=== PATIENT | female | born 1935 | race Caucasian/White ===

== ENCOUNTER 2017-04-24 13:29 | Inpatient (IN) ==
[2017-04-24] MEDS ORDERED: MAGNESIUM HYDROXIDE SUSP 30 ML UDCUP PO PRN (15:29)
[2017-04-24] MEDS ORDERED: ONDANSETRON 4 MG/2 ML VIAL IV PRN (15:29)
[2017-04-24] MEDS ORDERED: ACETAMINOPHEN 325 MG TABLET PO PRN (15:29)
[2017-04-24 17:16] LABS: Basophils # 0.1 10*3/uL (0.0-0.2); Basophils % 0.4 % (0.0-0.8); Eosinophils % 0.1 % (0.00-10.9); Hematocrit 38.9 VOL% (35.7-47.0); Hemoglobin 13.1 GM/DL (12.0-16.0); Immature Granulocytes % 0.5 %; Immature Granulocytes Absolute 0.08 #; Lymphocytes # 1.5 10*3/uL (1.4-4.0); Lymphocytes % 10.1 % (21.3-54.2); Mean Corpuscular HGB Conc 33.7 GM/DL (32-36); Mean Corpuscular Hemoglobin 31 PG (27-34); Mean Corpuscular Volume 90.5 FL (87-102); Mean Platelet Volume 9.9 FL (9.6-12.0); Monocytes # 1.1 10*3/uL (0.11-0.8); Monocytes % 7.4 % (1.7-12.7); Neutrophils # 12.1 10*3/uL (1.4-7.4); Neutrophils % 81.5 % (38.7-73.9); Platelet Count 145 T/CUMM (130-400); Red Cell Distribution Width 13.5 % (9.3-17.3); White Blood Count 14.9 T/CUMM (4-12)
[2017-04-24] MEDS: AMPICILLIN/SULBACTAM 1,500 MG in SODIUM CHLORIDE 0.9% 100 ML IV SCH (17:20)
[2017-04-24] MEDS: SODIUM CHLORIDE 0.45% 1,000 ML IV SCH (17:21)
[2017-04-24] MEDS: methylPREDNISolone SOD SUC 40 MG/1 ML VIAL IV SCH (17:21)
[2017-04-24 17:36] LABS: INR 1.9; PT Patient Result 19.4 SECS
[2017-04-24 18:02] LABS: Albumin 3.7 G/DL (3.4-5.0); Bilirubin,Total 1.1 MG/DL (0.2-1.0); Calcium 9.1 MG/DL (8.5-10.1); Osmolality,Calculated 270.2 MOS/KG (273-304); Total Protein 7.2 G/DL (6.4-8.3)
[2017-04-24] MEDS: GABAPENTIN 600 MG TABLET PO SCH (21:11)
[2017-04-24] MEDS: DILTIAZEM CD 120 MG CAPSULE PO SCH (21:11)
[2017-04-24] MEDS: WARFARIN 5 MG TABLET PO SCH (21:11)
[2017-04-24] MEDS: CARVEDILOL 12.5 MG TABLET PO SCH (21:12)
[2017-04-24] MEDS: DOCUSATE SODIUM 100 MG CAPSULE PO SCH (21:12)
[2017-04-24] MEDS ORDERED: FUROSEMIDE 40 MG/4 ML VIAL IV ONE (22:46)
[2017-04-25] MEDS: cloNIDine 0.1 MG TABLET PO SCH ×2 (00:10→20:30)
[2017-04-25] MEDS: AMPICILLIN/SULBACTAM 1,500 MG in SODIUM CHLORIDE 0.9% 100 ML IV SCH ×3 (00:10→16:05)
[2017-04-25] MEDS: ALBUTEROL/IPRATROPIUM 3 ML NEB RESP TX SCH ×4 (01:31→19:35)
[2017-04-25] MEDS: methylPREDNISolone SOD SUC 40 MG/1 ML VIAL IV SCH ×2 (04:15→15:54)
[2017-04-25 05:15] LABS: Basophils # 0.1 10*3/uL (0.0-0.2); Basophils % 0.4 % (0.0-0.8); Eosinophils % 0.2 % (0.00-10.9); Hematocrit 32.9 VOL% (35.7-47.0); Hemoglobin 11.4 GM/DL (12.0-16.0); Immature Granulocytes % 0.8 %; Lymphocytes # 1.3 10*3/uL (1.4-4.0); Mean Corpuscular HGB Conc 34.7 GM/DL (32-36); Mean Corpuscular Hemoglobin 31 PG (27-34); Mean Corpuscular Volume 89.9 FL (87-102); Mean Platelet Volume 9.9 FL (9.6-12.0); Monocytes % 7.3 % (1.7-12.7); Neutrophils # 10.8 10*3/uL (1.4-7.4); Neutrophils % 81.3 % (38.7-73.9); Platelet Count 132 T/CUMM (130-400); Red Blood Count 3.66 MC/CUMM (3.8-5.5); Red Cell Distribution Width 13.6 % (9.3-17.3); White Blood Count 13.3 T/CUMM (4-12)
[2017-04-25 05:43] LABS: Calcium 8.3 MG/DL (8.5-10.1)
[2017-04-25 06:27] LABS: Apearance,Urine CLEAR (Clear); Bacteria,Urine Occasional /HPF (Few); Bilirubin,Urine Negative (Negative); Blood, Urine Small mg/dL (Negative); Glucose,Urine (UA) Negative (Negative); Ketones,Urine Negative (Negative); Nitrite,Urine Negative (Negative); Protein,Urine Negative; RBC,Urine <1 /HPF (0-4); Squamous Epithelial Cell,Urine Occasional /HPF (0-10); Urine Color Yellow (Yellow); Urine Specific Gravity 1.009 (1.001-1.035); Urine Urobilinogen < 2.0 EU/DL (0.2-1.0); WBC,Urine 3 /HPF (0-6)
[2017-04-25] MEDS ORDERED: SKIN HEALING OINT (AQUAPHOR) 50 GM TUBE TOP PRN (08:04)
[2017-04-25] MEDS ORDERED: CHLORHEXIDINE 4% SOLN 118 ML BOTTLE TOP ONE (08:04)
[2017-04-25] MEDS: FUROSEMIDE 20 MG/2 ML VIAL IV SCH (08:30)
[2017-04-25] MEDS: DOCUSATE SODIUM 100 MG CAPSULE PO SCH ×2 (08:30→20:30)
[2017-04-25] MEDS: SERTRALINE 50 MG TABLET PO SCH (08:30)
[2017-04-25] MEDS: PANTOPRAZOLE 40 MG TABLET PO SCH (08:30)
[2017-04-25] MEDS: CARVEDILOL 12.5 MG TABLET PO SCH ×2 (08:30→20:30)
[2017-04-25] MEDS: SODIUM CHLORIDE 0.45% 1,000 ML IV SCH (08:33)
[2017-04-25] MEDS: WARFARIN 5 MG TABLET PO SCH (17:25)
[2017-04-25] MEDS: DILTIAZEM CD 120 MG CAPSULE PO SCH (20:30)
[2017-04-25] MEDS: GABAPENTIN 600 MG TABLET PO SCH (20:30)
[2017-04-26] MEDS: ALBUTEROL/IPRATROPIUM 3 ML NEB RESP TX SCH ×4 (00:13→21:02)
[2017-04-26] MEDS: SODIUM CHLORIDE 0.45% 1,000 ML IV SCH ×2 (00:58→08:49)
[2017-04-26] MEDS: AMPICILLIN/SULBACTAM 1,500 MG in SODIUM CHLORIDE 0.9% 100 ML IV SCH ×3 (00:59→15:59)
[2017-04-26] MEDS: methylPREDNISolone SOD SUC 40 MG/1 ML VIAL IV SCH ×2 (04:21→15:54)
[2017-04-26 06:59] LABS: Osmolality,Calculated 271.8 MOS/KG (273-304); Potassium 3.5 MMOL/L (3.5-5.1)
[2017-04-26] MEDS: DOCUSATE SODIUM 100 MG CAPSULE PO SCH ×3 (09:51→21:41)
[2017-04-26] MEDS: SERTRALINE 50 MG TABLET PO SCH (10:01)
[2017-04-26] MEDS: PANTOPRAZOLE 40 MG TABLET PO SCH (10:02)
[2017-04-26] MEDS: FUROSEMIDE 20 MG/2 ML VIAL IV SCH (10:02)
[2017-04-26] MEDS: CARVEDILOL 12.5 MG TABLET PO SCH ×2 (10:02→21:39)
[2017-04-26 17:13] LABS: INR 2.3
[2017-04-26 17:15] LABS: PT Patient Result 23.6 SECS
[2017-04-26] MEDS: WARFARIN 5 MG TABLET PO SCH (17:32)
[2017-04-26] MEDS ORDERED: POTASSIUM CHLORIDE 20 MEQ TABLET PO ONE (17:44)
[2017-04-26] MEDS: GABAPENTIN 600 MG TABLET PO SCH (21:38)
[2017-04-26] MEDS: cloNIDine 0.1 MG TABLET PO SCH (21:38)
[2017-04-26] MEDS: DILTIAZEM CD 120 MG CAPSULE PO SCH (21:38)
[2017-04-27] MEDS: ALBUTEROL/IPRATROPIUM 3 ML NEB RESP TX SCH ×4 (00:50→19:31)
[2017-04-27] MEDS: AMPICILLIN/SULBACTAM 1,500 MG in SODIUM CHLORIDE 0.9% 100 ML IV SCH ×4 (01:14→17:07)
[2017-04-27] MEDS: methylPREDNISolone SOD SUC 40 MG/1 ML VIAL IV SCH ×2 (03:44→15:16)
[2017-04-27 07:07] LABS: Basophils % 0.2 % (0.0-0.8); Eosinophils % 0.1 % (0.00-10.9); Hematocrit 33.6 VOL% (35.7-47.0); Hemoglobin 11.1 GM/DL (12.0-16.0); Immature Granulocytes % 1.3 %; Immature Granulocytes Absolute 0.13 #; Mean Corpuscular Hemoglobin 30 PG (27-34); Mean Corpuscular Volume 92.1 FL (87-102); Mean Platelet Volume 10.6 FL (9.6-12.0); Monocytes # 0.7 10*3/uL (0.11-0.8); Neutrophils # 8.2 10*3/uL (1.4-7.4); Neutrophils % 81.4 % (38.7-73.9); Platelet Count 172 T/CUMM (130-400); Red Blood Count 3.65 MC/CUMM (3.8-5.5); Red Cell Distribution Width 13.2 % (9.3-17.3); White Blood Count 10.1 T/CUMM (4-12)
[2017-04-27 07:38] LABS: Calcium 8.4 MG/DL (8.5-10.1); Osmolality,Calculated 281.5 MOS/KG (273-304); Potassium 4.5 MMOL/L (3.5-5.1)
[2017-04-27] MEDS: FUROSEMIDE 20 MG/2 ML VIAL IV SCH (08:38)
[2017-04-27] MEDS: CARVEDILOL 12.5 MG TABLET PO SCH ×2 (08:39→21:26)
[2017-04-27] MEDS: PANTOPRAZOLE 40 MG TABLET PO SCH (08:40)
[2017-04-27] MEDS: SERTRALINE 50 MG TABLET PO SCH (08:40)
[2017-04-27] MEDS: POTASSIUM CHLORIDE 20 MEQ TABLET PO SCH (09:35)
[2017-04-27] MEDS: DOCUSATE SODIUM 100 MG CAPSULE PO SCH ×2 (11:21→21:29)
[2017-04-27] MEDS: WARFARIN 5 MG TABLET PO SCH (17:02)
[2017-04-27] MEDS: GABAPENTIN 600 MG TABLET PO SCH (21:26)
[2017-04-27] MEDS: DILTIAZEM CD 120 MG CAPSULE PO SCH (21:26)
[2017-04-27] MEDS: cloNIDine 0.1 MG TABLET PO SCH (21:26)
[2017-04-27] MEDS: AMOXICILLIN/CLAV 500 MG TABLET PO SCH (21:26)
[2017-04-28] MEDS: ALBUTEROL/IPRATROPIUM 3 ML NEB RESP TX SCH ×2 (00:18→08:00)
[2017-04-28 06:55] LABS: Calcium 8.6 MG/DL (8.5-10.1); Osmolality,Calculated 279.5 MOS/KG (273-304); Potassium 4.4 MMOL/L (3.5-5.1)
[2017-04-28] MEDS ORDERED: FUROSEMIDE 40 MG TABLET PO SCH (09:00)
[2017-04-28] MEDS: CARVEDILOL 12.5 MG TABLET PO SCH (09:19)
[2017-04-28] MEDS: SERTRALINE 50 MG TABLET PO SCH (09:19)
[2017-04-28] MEDS: POTASSIUM CHLORIDE 20 MEQ TABLET PO SCH (09:19)
[2017-04-28] MEDS: DOCUSATE SODIUM 100 MG CAPSULE PO SCH (09:19)
[2017-04-28] MEDS: AMOXICILLIN/CLAV 500 MG TABLET PO SCH (09:19)
[2017-04-28] MEDS: PANTOPRAZOLE 40 MG TABLET PO SCH (09:19)
[2017-04-28 11:34] VITALS: BP 151/84
== END 2017-04-28 12:15 | disposition home health service (06) | DRG 603 ==
LOC: N.5E 16:27
PROVIDERS: ADMIT Internal Medicine; ATTEND Internal Medicine

== ENCOUNTER 2018-12-18 14:11 | Inpatient (IN) ==
[2018-12-18] MEDS ORDERED: ONDANSETRON 4 MG/2 ML VIAL IV PRN (14:16)
[2018-12-18] MEDS ORDERED: ACETAMINOPHEN 325 MG TABLET PO PRN (14:16)
[2018-12-18 16:09] LABS: Basophils # 0.1 10*3/uL (0.0-0.2); Basophils % 0.9 % (0.0-0.8); Eosinophils # 0.1 10*3/uL (0.0-0.87); Eosinophils % 1.5 % (0.00-10.9); Hematocrit 40.2 VOL% (35.7-47.0); Hemoglobin 13.1 GM/DL (12.0-16.0); Immature Granulocytes % 0.5 %; Immature Granulocytes Absolute 0.03 #; Lymphocytes # 1.4 10*3/uL (1.4-4.0); Lymphocytes % 20.5 % (21.3-54.2); Mean Corpuscular HGB Conc 32.6 GM/DL (32-36); Mean Corpuscular Volume 92.2 FL (87-102); Mean Platelet Volume 10.4 FL (9.6-12.0); Monocytes % 8.8 % (1.7-12.7); Neutrophils % 67.8 % (38.7-73.9); Platelet Count 179 T/CUMM (130-400); Red Blood Count 4.36 MC/CUMM (3.8-5.5); Red Cell Distribution Width 13.4 % (9.3-17.3); White Blood Count 6.6 T/CUMM (4-12)
[2018-12-18 16:25] LABS: INR 1.7; PT Patient Result 18.7 SECS (9.6-12.2)
[2018-12-18 16:28] LABS: Albumin 3.5 G/DL (3.4-5.0); Bilirubin,Total 0.8 MG/DL (0.2-1.0); Calcium 9.8 MG/DL (8.5-10.1); Osmolality,Calculated 273.8 MOS/KG (273-304); Total Protein 7.4 G/DL (6.4-8.3)
[2018-12-18] MEDS: TERBINAFINE 1% CREAM 12 GM TUBE TOP SCH ×2 (16:52→21:39)
[2018-12-18] MEDS: PIPERACILLIN/TAZOBACTAM 3,375 MG in SODIUM CHLORIDE 0.9% 100 ML IV SCH ×2 (16:52→23:39)
[2018-12-18] MEDS: SKIN HEALING OINT (AQUAPHOR) 50 GM TUBE TOP PRN (16:52)
[2018-12-18] MEDS ORDERED: SKIN HEALING OINT (AQUAPHOR) 50 GM TUBE TOP PRN (20:43)
[2018-12-18] MEDS ORDERED: FUROSEMIDE 40 MG/4 ML VIAL IV ONE (20:48)
[2018-12-18] MEDS: carvediloL 12.5 MG TABLET PO SCH (22:23)
[2018-12-18] MEDS: DILTIAZEM CD 120 MG CAPSULE PO SCH (22:24)
[2018-12-18] MEDS: WARFARIN 5 MG TABLET PO SCH (22:24)
[2018-12-18] MEDS: DOCUSATE SODIUM 100 MG CAPSULE PO SCH (22:24)
[2018-12-19] MEDS: ALBUTEROL/IPRATROPIUM 3 ML NEB RESP TX SCH ×4 (00:10→19:07)
[2018-12-19 06:08] LABS: INR 1.9
[2018-12-19 06:26] LABS: Calcium 9.1 MG/DL (8.5-10.1)
[2018-12-19] MEDS: PIPERACILLIN/TAZOBACTAM 3,375 MG in SODIUM CHLORIDE 0.9% 100 ML IV SCH ×2 (06:29→15:34)
[2018-12-19] MEDS: PANTOPRAZOLE 40 MG TABLET PO SCH (09:50)
[2018-12-19] MEDS: SERTRALINE 50 MG TABLET PO SCH (09:50)
[2018-12-19] MEDS: DOCUSATE SODIUM 100 MG CAPSULE PO SCH ×2 (09:50→21:40)
[2018-12-19] MEDS: FUROSEMIDE 40 MG/4 ML VIAL IV SCH ×2 (09:50→15:34)
[2018-12-19] MEDS: TERBINAFINE 1% CREAM 12 GM TUBE TOP SCH ×2 (09:52→21:41)
[2018-12-19] MEDS: WARFARIN 5 MG TABLET PO SCH (17:21)
[2018-12-19] MEDS: DILTIAZEM CD 120 MG CAPSULE PO SCH (21:40)
[2018-12-19] MEDS: carvediloL 12.5 MG TABLET PO SCH (21:40)
[2018-12-20] MEDS: PIPERACILLIN/TAZOBACTAM 3,375 MG in SODIUM CHLORIDE 0.9% 100 ML IV SCH ×4 (00:11→23:20)
[2018-12-20] MEDS: ALBUTEROL/IPRATROPIUM 3 ML NEB RESP TX SCH ×4 (00:45→19:48)
[2018-12-20 06:42] LABS: INR 1.9; PT Patient Result 20.4 SECS (9.6-12.2)
[2018-12-20] MEDS: FUROSEMIDE 40 MG/4 ML VIAL IV SCH ×2 (09:54→15:18)
[2018-12-20] MEDS: PANTOPRAZOLE 40 MG TABLET PO SCH (09:55)
[2018-12-20] MEDS: TERBINAFINE 1% CREAM 12 GM TUBE TOP SCH ×2 (09:55→21:01)
[2018-12-20] MEDS: DOCUSATE SODIUM 100 MG CAPSULE PO SCH ×2 (09:55→20:59)
[2018-12-20] MEDS: SERTRALINE 50 MG TABLET PO SCH (09:55)
[2018-12-20] MEDS: SKIN HEALING OINT (AQUAPHOR) 50 GM TUBE TOP PRN (09:56)
[2018-12-20] MEDS: WARFARIN 5 MG TABLET PO SCH (17:38)
[2018-12-20] MEDS: DILTIAZEM CD 120 MG CAPSULE PO SCH (20:59)
[2018-12-20] MEDS: carvediloL 12.5 MG TABLET PO SCH (20:59)
[2018-12-20] MEDS: cloNIDine 0.1 MG TABLET PO SCH (20:59)
[2018-12-21] MEDS: ALBUTEROL/IPRATROPIUM 3 ML NEB RESP TX SCH ×4 (01:52→19:13)
[2018-12-21 04:54] LABS: INR 1.6; PT Patient Result 16.9 SECS (9.6-12.2)
[2018-12-21 04:56] LABS: Basophils # 0.1 10*3/uL (0.0-0.2); Basophils % 1.4 % (0.0-0.8); Eosinophils # 0.2 10*3/uL (0.0-0.87); Eosinophils % 2.9 % (0.00-10.9); Hematocrit 36.9 VOL% (35.7-47.0); Immature Granulocytes % 0.8 %; Immature Granulocytes Absolute 0.04 #; Lymphocytes # 1.6 10*3/uL (1.4-4.0); Lymphocytes % 30.7 % (21.3-54.2); Mean Corpuscular HGB Conc 32.5 GM/DL (32-36); Mean Corpuscular Volume 91.1 FL (87-102); Mean Platelet Volume 9.7 FL (9.6-12.0); Monocytes % 8.7 % (1.7-12.7); Neutrophils % 55.5 % (38.7-73.9); Platelet Count 146 T/CUMM (130-400); Red Blood Count 4.05 MC/CUMM (3.8-5.5); Red Cell Distribution Width 13.3 % (9.3-17.3); White Blood Count 5.2 T/CUMM (4-12)
[2018-12-21 05:24] LABS: Albumin 3.2 G/DL (3.4-5.0); Calcium 8.8 MG/DL (8.5-10.1); Osmolality,Calculated 283.4 MOS/KG (273-304); Total Protein 6.3 G/DL (6.4-8.3)
[2018-12-21] MEDS: PIPERACILLIN/TAZOBACTAM 3,375 MG in SODIUM CHLORIDE 0.9% 100 ML IV SCH ×3 (06:17→22:16)
[2018-12-21] MEDS: PANTOPRAZOLE 40 MG TABLET PO SCH (08:55)
[2018-12-21] MEDS: cloNIDine 0.1 MG TABLET PO SCH ×3 (08:55→20:57)
[2018-12-21] MEDS: FUROSEMIDE 40 MG/4 ML VIAL IV SCH ×2 (08:55→15:42)
[2018-12-21] MEDS: DOCUSATE SODIUM 100 MG CAPSULE PO SCH ×2 (08:55→20:57)
[2018-12-21] MEDS: SERTRALINE 50 MG TABLET PO SCH (08:55)
[2018-12-21] MEDS: TERBINAFINE 1% CREAM 12 GM TUBE TOP SCH ×2 (12:30→22:16)
[2018-12-21] MEDS: WARFARIN 5 MG TABLET PO SCH (18:03)
[2018-12-21] MEDS: POTASSIUM CHLORIDE 20 MEQ TABLET PO SCH (18:03)
[2018-12-21] MEDS: DILTIAZEM CD 120 MG CAPSULE PO SCH (20:57)
[2018-12-21] MEDS: carvediloL 12.5 MG TABLET PO SCH (20:57)
[2018-12-22] MEDS: ALBUTEROL/IPRATROPIUM 3 ML NEB RESP TX SCH (00:20)
[2018-12-22] MEDS: PIPERACILLIN/TAZOBACTAM 3,375 MG in SODIUM CHLORIDE 0.9% 100 ML IV SCH (06:04)
[2018-12-22] MEDS: FUROSEMIDE 40 MG/4 ML VIAL IV SCH ×2 (08:34→08:39)
[2018-12-22] MEDS: PANTOPRAZOLE 40 MG TABLET PO SCH (08:35)
[2018-12-22] MEDS: SERTRALINE 50 MG TABLET PO SCH (08:35)
[2018-12-22] MEDS: DOCUSATE SODIUM 100 MG CAPSULE PO SCH (08:35)
[2018-12-22] MEDS: POTASSIUM CHLORIDE 20 MEQ TABLET PO SCH (08:35)
[2018-12-22] MEDS: cloNIDine 0.1 MG TABLET PO SCH (08:35)
[2018-12-22] MEDS: TERBINAFINE 1% CREAM 12 GM TUBE TOP SCH (08:36)
[2018-12-22 09:08] VITALS: BP 150/79
[2018-12-22] MEDS ORDERED: WARFARIN 5 MG TABLET PO SCH (18:00)
== END 2018-12-22 10:49 | disposition home health service (06) | DRG 603 ==
LOC: N.5E
PROVIDERS: ADMIT Internal Medicine; ATTEND Internal Medicine

== ENCOUNTER 2022-04-14 06:26 | Inpatient (IN) ==
[2022-04-13 16:37] LABS: Basophils # 0.1 10*3/uL (0.0-0.2); Basophils % 1.2 % (0.0-0.8); Eosinophils # 0.1 10*3/uL (0.0-0.87); Eosinophils % 1.9 % (0.00-10.9); Hematocrit 38.4 VOL% (35.7-47.0); Hemoglobin 12.4 GM/DL (12.0-16.0); Immature Granulocytes % 0.4 %; Immature Granulocytes Absolute 0.03 #; Lymphocytes # 1.9 10*3/uL (1.4-4.0); Lymphocytes % 28.2 % (21.3-54.2); Mean Corpuscular HGB Conc 32.3 GM/DL (32-36); Mean Corpuscular Volume 90.6 FL (87-102); Mean Platelet Volume 10.4 FL (9.6-12.0); Monocytes # 0.6 10*3/uL (0.11-0.8); Monocytes % 8.7 % (1.7-12.7); Neutrophils % 59.6 % (38.7-73.9); Platelet Count 147 T/CUMM (130-400); Red Blood Count 4.24 MC/CUMM (3.8-5.5); Red Cell Distribution Width 13.6 % (9.3-17.3); White Blood Count 6.8 T/CUMM (4-12)
[2022-04-13 16:47] LABS: Calcium 9.1 MG/DL (8.5-10.1); Osmolality,Calculated 286.3 MOS/KG (273-304); Potassium 4.3 MMOL/L (3.5-5.1)
[2022-04-14] MEDS: LACTATED RINGERS 1,000 ML IV SCH ×2 (07:57→11:51)
[2022-04-14] MEDS ORDERED: buprenorphine HCL 0.3 MG/ML VIAL ONE (08:59)
[2022-04-14] MEDS ORDERED: ISOSULFAN BLUE 5 ML VIAL SUBCUT ONE (09:00)
[2022-04-14] MEDS ORDERED: TISSUE ADHESIVE 1 EACH APPLICATOR TOP ONE (09:00)
[2022-04-14] MEDS ORDERED: BUPIVACAINE MPF 0.25% 10 ML VIAL ONE (09:00)
[2022-04-14] MEDS ORDERED: LIDOCAINE 1%/EPI INJ 20 ML VIAL ONE (09:00)
[2022-04-14] MEDS ORDERED: fentaNYL 100 MCG/2 ML VIAL ONE (09:00)
[2022-04-14] MEDS ORDERED: KETAMINE 500 MG/10 ML VIAL ONE (09:57)
[2022-04-14] MEDS ORDERED: hydrALAZINE 20 MG/1 ML VIAL ONE (10:40)
[2022-04-14] MEDS ORDERED: propofoL 200 MG/20 ML VIAL IV ONE (10:40)
[2022-04-14] MEDS ORDERED: ROCURONIUM 50 MG/5 ML VIAL IV ONE (10:40)
[2022-04-14] MEDS ORDERED: LIDOCAINE 2% 5 ML VIAL ONE (10:40)
[2022-04-14] MEDS ORDERED: PHENYLEPHRINE 1 MG/10 ML SYRINGE IV ONE (10:40)
[2022-04-14] MEDS ORDERED: SEVOFLURANE 1 UNIT/15 MINUTE INH ONE ×10 (10:40→11:52)
[2022-04-14] MEDS ORDERED: NEOSTIGMINE 10 MG/10 ML VIAL ONE (11:54)
[2022-04-14] MEDS ORDERED: ONDANSETRON 4 MG/2 ML VIAL ONE ×2 (11:56→12:21)
[2022-04-14] MEDS ORDERED: GLYCOPYRROLATE 0.4 MG/2 ML VIAL ONE (11:56)
[2022-04-14] MEDS ORDERED: ONDANSETRON 4 MG/2 ML VIAL IV PRN (12:19)
[2022-04-14] MEDS ORDERED: HYDROmorphone 1 MG/1 ML SYRINGE ONE (12:21)
[2022-04-14] MEDS: HYDROmorphone 1 MG/1 ML SYRINGE IV PRN ×2 (12:25→12:38)
[2022-04-14] MEDS: ONDANSETRON 4 MG/2 ML VIAL IV PRN (14:22)
[2022-04-14] MEDS: MORPHINE 2 MG/1 ML SYRINGE IV PRN ×2 (14:23→19:42)
[2022-04-14] MEDS: ceFAZolin 2,000 MG/50 ML DUPLEX IV SCH (18:04)
[2022-04-15] MEDS: ceFAZolin 2,000 MG/50 ML DUPLEX IV SCH (03:01)
[2022-04-15] MEDS: MORPHINE 2 MG/1 ML SYRINGE IV PRN (03:47)
[2022-04-15] MEDS: PANTOPRAZOLE 40 MG TABLET PO SCH (08:41)
[2022-04-15] MEDS: ONDANSETRON 4 MG/2 ML VIAL IV PRN ×2 (09:57→14:20)
[2022-04-16] MEDS ORDERED: cloNIDine 0.1 MG TABLET PO PRN ×2 (06:52→08:33)
[2022-04-16] MEDS: PANTOPRAZOLE 40 MG TABLET PO SCH (08:35)
[2022-04-16] MEDS: carvediloL 6.25 MG TABLET PO SCH ×2 (08:35→20:55)
[2022-04-16] MEDS: ASPIRIN EC 81 MG TABLET PO SCH (08:56)
[2022-04-16] MEDS: busPIRone 10 MG TABLET PO SCH ×2 (08:56→20:55)
[2022-04-16] MEDS: SERTRALINE 50 MG TABLET PO SCH (08:56)
[2022-04-16] MEDS ORDERED: carvediloL 6.25 MG TABLET PO SCH (09:00)
[2022-04-16] MEDS: SIMVASTATIN 20 MG TABLET PO SCH (20:55)
[2022-04-17 06:03] LABS: Basophils # 0.1 10*3/uL (0.0-0.2); Basophils % 0.7 % (0.0-0.8); Eosinophils # 0.2 10*3/uL (0.0-0.87); Eosinophils % 2.7 % (0.00-10.9); Hematocrit 30.8 VOL% (35.7-47.0); Immature Granulocytes % 0.5 %; Immature Granulocytes Absolute 0.04 #; Lymphocytes # 1.3 10*3/uL (1.4-4.0); Lymphocytes % 15.8 % (21.3-54.2); Mean Corpuscular HGB Conc 31.8 GM/DL (32-36); Mean Corpuscular Volume 92.8 FL (87-102); Mean Platelet Volume 10.2 FL (9.6-12.0); Monocytes # 0.8 10*3/uL (0.11-0.8); Monocytes % 10.2 % (1.7-12.7); Neutrophils % 70.1 % (38.7-73.9); Platelet Count 129 T/CUMM (130-400); Red Cell Distribution Width 13.8 % (9.3-17.3); White Blood Count 8.3 T/CUMM (4-12)
[2022-04-17 06:10] LABS: Calcium 8.9 MG/DL (8.5-10.1); Osmolality,Calculated 283.4 MOS/KG (273-304)
[2022-04-17 06:21] LABS: Hemoglobin 9.8 GM/DL (12.0-16.0); Red Blood Count 3.32 MC/CUMM (3.8-5.5)
[2022-04-17] MEDS: SERTRALINE 50 MG TABLET PO SCH (09:18)
[2022-04-17] MEDS: carvediloL 6.25 MG TABLET PO SCH ×2 (09:19→21:22)
[2022-04-17] MEDS: busPIRone 10 MG TABLET PO SCH ×2 (09:19→21:23)
[2022-04-17] MEDS: ASPIRIN EC 81 MG TABLET PO SCH (09:19)
[2022-04-17] MEDS: PANTOPRAZOLE 40 MG TABLET PO SCH (09:19)
[2022-04-17] MEDS: ONDANSETRON 4 MG/2 ML VIAL IV PRN (10:09)
[2022-04-17] MEDS: SIMVASTATIN 20 MG TABLET PO SCH (21:22)
[2022-04-18] MEDS ORDERED: carvediloL 6.25 MG TABLET PO SCH (08:00)
[2022-04-18] MEDS: SERTRALINE 50 MG TABLET PO SCH (08:45)
[2022-04-18] MEDS: busPIRone 10 MG TABLET PO SCH (08:45)
[2022-04-18] MEDS: ASPIRIN EC 81 MG TABLET PO SCH (08:45)
[2022-04-18] MEDS: PANTOPRAZOLE 40 MG TABLET PO SCH (08:45)
[2022-04-18 10:55] VITALS: BP 160/65
== END 2022-04-18 13:06 | DRG 580 ==
LOC: N.OR 06:26 → N.SDSINP 06:27 → EDSTATUS 11:45 → N.3E 13:25
PROVIDERS: ADMIT Surgery; ATTEND Surgery

== ENCOUNTER 2022-04-29 15:35 | Observation (INO) ==
[2022-04-29] MEDS ORDERED: ACETAMINOPHEN 500 MG TABLET PO STA (20:44)
[2022-04-29] MEDS ORDERED: SODIUM CHLORIDE 0.9% 500 ML IV STA (20:44)
[2022-04-29] MEDS ORDERED: ONDANSETRON 4 MG/2 ML VIAL IV PRN (20:51)
[2022-04-29] MEDS ORDERED: ACETAMINOPHEN 325 MG TABLET PO PRN (20:51)
[2022-04-29 21:11] LABS: Basophils % 0.3 % (0.0-0.8); Eosinophils # 0.1 10*3/uL (0.0-0.87); Eosinophils % 0.9 % (0.00-10.9); Immature Granulocytes % 0.4 %; Immature Granulocytes Absolute 0.04 #; Lymphocytes # 1.3 10*3/uL (1.4-4.0); Lymphocytes % 14.2 % (21.3-54.2); Mean Corpuscular HGB Conc 32.3 GM/DL (32-36); Mean Corpuscular Volume 91.4 FL (87-102); Mean Platelet Volume 9.7 FL (9.6-12.0); Monocytes # 0.9 10*3/uL (0.11-0.8); Monocytes % 9.7 % (1.7-12.7); Neutrophils % 74.5 % (38.7-73.9); Platelet Count 203 T/CUMM (130-400); Red Blood Count 3.39 MC/CUMM (3.8-5.5); Red Cell Distribution Width 14.2 % (9.3-17.3); White Blood Count 8.9 T/CUMM (4-12)
[2022-04-29] MEDS: CLINDAMYCIN INJ 600 MG/50 ML PREMIX IV SCH (21:15)
[2022-04-29 21:32] LABS: Potassium 4.7 MMOL/L (3.5-5.1)
[2022-04-29] MEDS: LACTATED RINGERS 1,000 ML IV SCH (23:30)
[2022-04-30 04:53] LABS: Basophils % 0.6 % (0.0-0.8); Eosinophils # 0.1 10*3/uL (0.0-0.87); Eosinophils % 1.3 % (0.00-10.9); Hematocrit 29.4 VOL% (35.7-47.0); Hemoglobin 8.9 GM/DL (12.0-16.0); Immature Granulocytes % 0.5 %; Immature Granulocytes Absolute 0.03 #; Lymphocytes # 1.1 10*3/uL (1.4-4.0); Lymphocytes % 17.2 % (21.3-54.2); Mean Corpuscular HGB Conc 30.3 GM/DL (32-36); Mean Corpuscular Volume 97.4 FL (87-102); Monocytes # 0.7 10*3/uL (0.11-0.8); Monocytes % 11.8 % (1.7-12.7); Neutrophils % 68.6 % (38.7-73.9); Platelet Count 172 T/CUMM (130-400); Red Blood Count 3.02 MC/CUMM (3.8-5.5); Red Cell Distribution Width 14.2 % (9.3-17.3); White Blood Count 6.3 T/CUMM (4-12)
[2022-04-30 05:09] LABS: Calcium 8.5 MG/DL (8.5-10.1); Osmolality,Calculated 276.8 MOS/KG (273-304); Potassium 4.1 MMOL/L (3.5-5.1)
[2022-04-30] MEDS: CLINDAMYCIN INJ 600 MG/50 ML PREMIX IV SCH ×3 (05:45→20:58)
[2022-04-30] MEDS: PANTOPRAZOLE 40 MG TABLET PO SCH (09:21)
[2022-04-30] MEDS: LACTATED RINGERS 1,000 ML IV SCH ×2 (09:22→16:57)
[2022-04-30] MEDS ORDERED: fentaNYL 100 MCG/2 ML VIAL ONE (11:26)
[2022-04-30] MEDS ORDERED: LIDOCAINE 2% 5 ML VIAL ONE (11:31)
[2022-04-30] MEDS ORDERED: propofoL 200 MG/20 ML VIAL IV ONE (11:31)
[2022-04-30] MEDS ORDERED: ONDANSETRON 4 MG/2 ML VIAL ONE (11:42)
[2022-04-30] MEDS ORDERED: SEVOFLURANE 1 UNIT/15 MINUTE INH ONE (11:54)
[2022-04-30] MEDS: APIXABAN 2.5 MG TABLET PO SCH (20:57)
[2022-04-30] MEDS: carvediloL 6.25 MG TABLET PO SCH (20:57)
[2022-04-30] MEDS: busPIRone 10 MG TABLET PO SCH (20:59)
[2022-04-30] MEDS ORDERED: SIMVASTATIN 20 MG TABLET PO SCH (21:00)
[2022-05-01] MEDS: LACTATED RINGERS 1,000 ML IV SCH (05:04)
[2022-05-01] MEDS: CLINDAMYCIN INJ 600 MG/50 ML PREMIX IV SCH (05:05)
[2022-05-01 06:50] LABS: Basophils % 0.5 % (0.0-0.8); Eosinophils % 0.4 % (0.00-10.9); Hematocrit 26.2 VOL% (35.7-47.0); Hemoglobin 8.3 GM/DL (12.0-16.0); Immature Granulocytes % 0.5 %; Immature Granulocytes Absolute 0.03 #; Lymphocytes # 1.1 10*3/uL (1.4-4.0); Lymphocytes % 19.4 % (21.3-54.2); Mean Corpuscular HGB Conc 31.7 GM/DL (32-36); Mean Platelet Volume 9.3 FL (9.6-12.0); Monocytes # 0.7 10*3/uL (0.11-0.8); Monocytes % 13.3 % (1.7-12.7); Neutrophils % 65.9 % (38.7-73.9); Platelet Count 184 T/CUMM (130-400); Red Blood Count 2.88 MC/CUMM (3.8-5.5); Red Cell Distribution Width 14.1 % (9.3-17.3); White Blood Count 5.58 T/CUMM (4-12)
[2022-05-01 07:08] LABS: Calcium 8.2 MG/DL (8.5-10.1); Osmolality,Calculated 275.7 MOS/KG (273-304); Potassium 4.2 MMOL/L (3.5-5.1)
[2022-05-01] MEDS ORDERED: ASPIRIN EC 81 MG TABLET PO SCH (09:00)
[2022-05-01] MEDS ORDERED: LETROZOLE 2.5 MG TABLET PO SCH (09:00)
[2022-05-01] MEDS ORDERED: SERTRALINE 100 MG TABLET PO SCH (09:00)
[2022-05-01] MEDS: PANTOPRAZOLE 40 MG TABLET PO SCH (09:04)
[2022-05-01] MEDS: busPIRone 10 MG TABLET PO SCH (09:04)
[2022-05-01] MEDS: carvediloL 6.25 MG TABLET PO SCH (09:04)
[2022-05-01] MEDS: APIXABAN 2.5 MG TABLET PO SCH (11:06)
[2022-05-01 12:05] VITALS: BP 136/71
== END 2022-05-01 13:27 | disposition home or self-care (01) ==
LOC: N.EDINP 15:35 → N.ED 15:35 → N.2W 22:40
PROVIDERS: ADMIT Surgery; ATTEND Surgery